=== PATIENT | female | born 1960 | race Caucasian/White ===

== ENCOUNTER 2021-08-18 10:49 | Outpatient (REF) | payer MEDICARE, MEDICAID, SELFPAY ==
[2021-08-18 14:41] LABS: Abs Immature Grans 0.03 10^3/uL (0.0-0.06); Absolute Basophil Count 0.05 10^3/uL (0.0-0.2); Absolute Eosinophil Count 0.62 10^3/uL (0.0-0.7); Absolute Lymphocyte Count 2.15 10^3/uL (1.2-3.4); Absolute Monocyte Count 0.74 10^3/uL (0.1-0.8); Basophils % 0.6; HCT 48.8 % (36.0-46.0); HGB 15.8 g/dL (11.2-15.7); Immature Grans % 0.3; Lymphocytes % 24.2; MCH 29.8 pg (27.0-33.0); MCHC 32.4 % (32.0-36.0); MCV 92.1 fL (80-95); MPV 11.2 fL (8.0-11.0); Monocytes % 8.3; Neutrophils % 59.6; Nucleated RBC 0 %; Platelet Count 241 10^3/uL (130-400); RDW 12.7 % (11.7-14.6); RDW-SD 43.2 fL; WBC 8.89 10^3/uL (4.4-10.8)
[2021-08-18 15:07] LABS: ALT 19 U/L (14-59); AST 16 U/L (15-37); Albumin 3.8 g/dL (3.4-5.0); Alkaline Phosphatase 59 U/L (46-116); Anion Gap 11.9 mmol/L (3-11); BUN 12 mg/dL (7-18); Bilirubin, Total 0.8 mg/dL (0.2-1.0); CO2 25.1 mmol/L (21.0-32.0); CREATININE 0.8 mg/dL (0.55-1.02); Calcium 8.8 mg/dL (8.5-10.1); Chloride 104 mmol/L (98-107); Glucose 98 mg/dL (74-106); Lipase 50 U/L (73-393); Sodium 141 mmol/L (136-145)
== END 2021-08-18 10:50 | disposition home or self-care (01) ==
LOC: LBN 10:49
PROVIDERS: PCP Nurse Practitioner Family; Visit Provider Physician Assistant Medical
DX: R10.9 Unspecified abdominal pain (principal)
CPT/HCPCS: 80053; 83690; 85025

== ENCOUNTER 2021-08-18 19:35 | Outpatient (CLI) | payer MEDICARE, MEDICAID, SELFPAY ==
--- NOTE | 2021-08-18 | DI.US_ITS ---
Exam(s) US ABDOMEN EXAM: US ABDOMEN CLINICAL HISTORY: ABD PAIN, R10.9, CONCERNING FOR BILIARY COLIC, ONGOING TECHNIQUE: Ultrasound abdomen performed using standard protocol. COMPARISON: US ABDOMEN ULTRASOUND (P) from 12/17/2016 FINDINGS: ABDOMINAL AORTA AND IVC: Visualized portions normal caliber. PANCREAS: Normal where visualized. LIVER: There is diffuse increased echogenicity of the liver consistent with fatty infiltration. The liver measures 13.1 cm long. Hepatopedal flow in the Portal Vein. GALLBLADDER:There is a 2 mm echogenic immobile nodule along the anterior wall of the gallbladder whic h may represent a polyp. There is a 3 mm echogenic nodule along the posterior wall of the gallbladde r which may represent a polyp or adherent stone. There is some gallbladder sludge. BILIARY SYSTEM: Common bile duct measures < 7 mm. No intrahepatic biliary ductal dilation. KANG'S SIGN: Negative. KIDNEYS: Kidneys are symmetric in size. No evidence of renal calculi. No evidence of hydronephrosis. No renal mass or cyst identified. SPLEEN: Not enlarged. ASCITES: None seen. IMPRESSION: 1. Two echogenic immobile nodules along the wall of the gallbladder likely reflecting polyps. 2. Mild gallbladder sludge. No gallbladder wall thickening, pericholecystic fluid, biliary ductal di latation or sonographic Kang sign. 3. Hepatic steatosis. DATA REPOSITORY:
== END 2021-08-18 19:55 ==
PROVIDERS: PCP Nurse Practitioner Family; Visit Provider Physician Assistant Medical
DX: R10.9 Unspecified abdominal pain (principal); K76.0 Fatty (change of) liver, not elsewhere classified; R93.5 Abnormal findings on diagnostic imaging of other abdominal regions, including retroperitoneum
CPT/HCPCS: 76700

== ENCOUNTER → 2021-08-29 10:50 | Outpatient (BNVA) | payer MEDICARE, MEDICAID, SELFPAY | PROVIDERS: Referring Provider Physician Assistant Medical; Visit Provider Surgery | DX: K82.4 Cholesterolosis of gallbladder (principal); R10.13 Epigastric pain | CPT/HCPCS: 99203 ==